=== PATIENT | female | born 2005 | race Caucasian/White ===

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

== ENCOUNTER → 2024-11-08 | Outpatient (CLI) | payer OTHER ==
[2024-11-08 17:54] LABS: ALKALINE PHOSPHATASE 61 U/L (46-116); BUN 10 mg/dl (9-23); CHLORIDE 106 mmol/L (98-107); CHOLESTEROL 135 mg/dL (<200); LDL CHOLESTEROL 64 mg/dL (9-159); POTASSIUM 4.3 mmol/L (3.4-5.1); SGPT/ALT 22 U/L (5-49); TOTAL PROTEIN 6.9 gm/dL (6.0-8.0); TRIGLYCERIDES 159 mg/dl (<150)
[2024-11-08 18:19] LABS: FREE T4 3.28 ng/dl (0.89-1.76)
== END | disposition home or self-care (01) ==
LOC: ZRHCWE 16:35 → LAB 16:35
PROVIDERS: ATTEND Nurse Practitioner Family
DX: Z13.220 Encounter for screening for lipoid disorders (principal); Z13.228 Encounter for screening for other metabolic disorders; Z13.1 Encounter for screening for diabetes mellitus; Z13.0 Encounter for screening for diseases of the blood and blood-forming organs and certain disorders involving the immune mechanism; Z76.89 Persons encountering health services in other specified circumstances

== ENCOUNTER → 2024-11-21 | Outpatient (CLI) | payer OTHER | END | disposition home or self-care (01) | LOC: US 01:32 | PROVIDERS: ATTEND Nurse Practitioner Family | DX: E05.90 Thyrotoxicosis, unspecified without thyrotoxic crisis or storm (principal) ==

== ENCOUNTER → 2024-12-06 | Outpatient (CLI) | payer OTHER ==
[2024-12-06 11:36] LABS: FREE T4 3.19 ng/dl (0.89-1.76)
[2024-12-08 07:06] LABS: THYROID STIM IMMUNOGLOBULIN 5.15 IU/L (0.00-0.55)
== END | disposition home or self-care (01) ==
LOC: LAB 10:38
PROVIDERS: ATTEND Nurse Practitioner Family
DX: E06.9 Thyroiditis, unspecified (principal)

== ENCOUNTER → 2024-12-11 | Outpatient (CLI) | payer OTHER ==
[~2024-12-11] MED LIST changes: +Technetium Tc-99m pertechnetat 1 KIT KIT IV SCH
== END | disposition home or self-care (01) ==
LOC: NM 00:43
PROVIDERS: ATTEND Nurse Practitioner Family
DX: R93.89 Abnormal findings on diagnostic imaging of other specified body structures (principal)

== ENCOUNTER → 2025-01-24 | Outpatient (CLI) | payer OTHER ==
[~2025-01-24] MED LIST changes: -Technetium Tc-99m pertechnetat 1 KIT KIT IV SCH
[2025-01-24 09:23] LABS: FREE T4 0.69 ng/dl (0.89-1.76)
== END | disposition home or self-care (01) ==
LOC: LAB 07:18
PROVIDERS: Student in an Organized Health Care Education/Training Program; ATTEND Internal Medicine Endocrinology, Diabetes & Metabolism
DX: E05.00 Thyrotoxicosis with diffuse goiter without thyrotoxic crisis or storm (principal)

== ENCOUNTER → 2025-03-15 | Outpatient (CLI) | payer OTHER ==
[2025-03-15 09:07] LABS: FREE T4 0.76 ng/dl (0.89-1.76)
== END | disposition home or self-care (01) ==
LOC: LAB 07:42
PROVIDERS: Student in an Organized Health Care Education/Training Program; ATTEND Internal Medicine Endocrinology, Diabetes & Metabolism
DX: E05.00 Thyrotoxicosis with diffuse goiter without thyrotoxic crisis or storm (principal)

== ENCOUNTER → 2025-03-28 | Outpatient (CLI) | payer OTHER ==
[2025-03-28 09:13] LABS: FREE T4 0.85 ng/dl (0.89-1.76)
== END | disposition home or self-care (01) ==
LOC: LAB 08:18
PROVIDERS: ATTEND Internal Medicine Endocrinology, Diabetes & Metabolism
DX: E05.00 Thyrotoxicosis with diffuse goiter without thyrotoxic crisis or storm (principal)